=== PATIENT | male | born 1960 | race Caucasian/White ===

== ENCOUNTER → 2017-09-08 | Outpatient (CLI) | payer OTHER ==
--- NOTE | 2017-09-08 14:36 | EXE ---
[place] [address] STRESS ECHOCARDIOGRAM Name: SHANTANU JAMES Room: [facility]#: [id number] Admission: 09/08/17 Attend Phys: Fermin Juarez MD Discharge: Date of : 60 Date of Service: 09/08/17 1436 Report #: [id number] THIS REPORT FOR: //name// APPROVED REPORT Study performed: 09/08/2017 13:17:33 Exam: Stress Echocardiogram Indication: CAD Patient Location: Out-Patient Stress Nurse: Shelia Hernandez RN Supervising Physician: Fermin Juarez MD Status: routine Ht: 5 ft 10 in HR: 73 bpm BP: 121/78 mmHg Rhythm: NSR Medical History Cardiac Risk Factors: Hyperlipidemia, HTN, FHX of CAD Previous Cardiac Procedures: CABG, PCI, Myocardial infarction Procedure The patient underwent an Exercise Stress Test using the Jerome Protocol. Blood pressure, heart rate, and EKG were monitored. An Echocardiogram was performed by sugarcane research technician in four stages in quad fashion. At peak stress, four selected images were obtained and placed side by side with resting images for comparison. Echo Enhancing Agent Indication: Endocardial border delineation Agent(s) / Amount(s) Used: Optison 9 cc Stress Test Details Stress Test: Exercise stress testing was performed using a Jerome protocol. HR Resting HR: 73 bpm Max Heart Rate (APMHR): 163 bpm Max HR Achieved: 148 bpm Target HR (85% APMHR): 138 bpm % of APMHR: 90 Recovery HR: 90 bpm HR response to stress: Normal [place] [address] STRESS ECHOCARDIOGRAM Name: SHANTANU JAMES Room: [facility]#: [id number] Admission: 09/08/17 Attend Phys: Fermin Juarez MD Discharge: Date of : 60 Date of Service: 09/08/17 1436 Report #: [id number] Resting BP: 121/78 mmHg Max BP: 214/68 mmHg Recovery BP: 123/69 mmHg ECG Resting ECG: Sinus Rhythm Stress ECG: Sinus Rhythm, nonspecific ST-T abnormalities ST Change: Downsloping ST depression Maximum ST Deviation: 1 mm Arrhythmia: None Recovery ECG: Sinus Rhythm, nonspecific ST-T abnormalities Recovery ST Change: Downsloping ST depression Recovery ST Deviation: 0.5 mm Recovery Arrhythmia: None Clinical Reason for Termination: Maximal effort Exercise duration: 6 min 48 sec Highest Stage Achieved: Stage 3: 3.4 mph at 14% grade. Exercise capacity: 8.39 METs Pre-Stress Echo The resting Echocardiogram showed normal left ventricular contractility with an estimated Ejection Fraction of about 55-60%. Post-Stress Echo The stress Echocardiogram showed normal left ventricular contractility with an estimated Ejection Fraction of about 65-70%. Conclusion Clinical Response: Non-ischemic Exercise Capacity: Average Stress ECG Response: Indeterminant Stress Echo Images: Non-ischemic low risk stress echo for future cardiac events Other Information Study Quality: Technically Difficult Technically limited study due [place] [address] STRESS ECHOCARDIOGRAM Name: SHANTANU JAMES Room: [facility]#: [id number] Admission: 09/08/17 Attend Phys: Fermin Juarez MD Discharge: Date of : 60 Date of Service: 09/08/17 143 Report #: [id number] <Conclusion> low risk stress echo for future cardiac events <ELECTRONICALLY SIGNED> By: Fermin uJarez MD, FACC 09/08/17 143 35 35 Fermin Juarez MD, FACC /INF
== END ==
LOC: M.CRD 12:25
DX: I25.10 Atherosclerotic heart disease of native coronary artery without angina pectoris (principal)